=== PATIENT | male | born 2005 | race Caucasian/White ===

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

== ENCOUNTER 2024-05-05 07:00 | Outpatient (CLI) | payer BC, MEDICAID ==
--- NOTE | 2024-05-05 19:12 | XRAY Report ---
PROCEDURE: Ankle 3+V RT INDICATIONS: RIGHT ANKLE SPRAIN TECHNIQUE: 3 views of the ankle were acquired. COMPARISON: None. FINDINGS: Bones: No fractures or dislocations. Ankle mortise is normally aligned. No suspicious bony lesions . Soft tissues: No tibiotalar joint effusion. Achilles tendon appears normal. IMPRESSION: No acute bony abnormality. Lateral ankle soft tissue swelling. Ankle mortise is congruent. Reviewed by: Melchor Gonzalez MD on 05/05/2024 7:11 PM PDT Approved by: Melchor Gonzalez MD on 05/05/2024 7:11 PM PDT Station ID: [id number]
== END 2024-05-05 23:59 | disposition home or self-care (01) ==
LOC: DI.S 07:00
PROVIDERS: ATTEND Emergency Medicine
DX: S93.491A Sprain of other ligament of right ankle, initial encounter (principal)